=== PATIENT | female | born 2000 | race Caucasian/White ===

== ENCOUNTER 2020-06-28 11:17 | Emergency (ER) | payer SELFPAY ==
[~2020-06-28] VITALS: Ht 170.2 cm; Wt 49.9 kg
[2020-06-28 11:21] VITALS: Ht 170.2 cm; Wt 49.9 kg
[2020-06-28 13:38] VITALS: BP 114/70
== END 2020-06-28 13:38 | disposition home or self-care (01) ==
LOC: ED 11:17
DX: S06.0X9A Concussion with loss of consciousness of unspecified duration, initial encounter (principal); S70.212A Abrasion, left hip, initial encounter; S89.92XA Unspecified injury of left lower leg, initial encounter; W22.8XXA Striking against or struck by other objects, initial encounter; Y93.89 Activity, other specified; Y92.89 Other specified places as the place of occurrence of the external cause; Y99.8 Other external cause status